=== PATIENT | male | born 1965 | race Caucasian/White ===

== ENCOUNTER 2017-06-04 14:35 | Emergency (ER) | payer OTHER, MEDICARE ==
[~2017-06-04] VITALS: Ht 195.6 cm; Wt 98.9 kg
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
[~2017-06-04 14:35] MED LIST: AMBIEN; AMBIEN CR PO; AMBIEN10 MG PO; ASPIRIN PO; AZOR 10-40 MG1 UDTAB PO; BACLOFEN10 MG PO; CIPRO PO; DARVOCET-N 1001 TAB PO; DIAZEPAM PO; FLAGYL PO; FLEXERIL; FLEXERIL PO; JANUMET XR 50-1 EAC1 PO; KLONOPIN0.5 MG PO; NEURONTIN PO; OPANA ER40 MG PO; OXYCONTIN PO; PERCOCET 10/3251 TAB PO; PERCOCET10 PO; PHENERGAN25 MG PO; PROVENTIL0.83 MG/ML IH; RANITIDINE HCL150 M1 PO; ZANAFLEX PO
== END 2017-06-04 17:25 | disposition home or self-care (01) ==
LOC: CFTX 14:35 → CED 14:35 → CFTX 16:26
DX: S93.402A Sprain of unspecified ligament of left ankle, initial encounter (principal); S40.011A Contusion of right shoulder, initial encounter; S20.212A Contusion of left front wall of thorax, initial encounter; S30.0XXA Contusion of lower back and pelvis, initial encounter; J44.9 Chronic obstructive pulmonary disease, unspecified; E11.9 Type 2 diabetes mellitus without complications; I11.9 Hypertensive heart disease without heart failure; I51.9 Heart disease, unspecified; F17.210 Nicotine dependence, cigarettes, uncomplicated; Z98.890 Other specified postprocedural states; Z88.0 Allergy status to penicillin; Z88.5 Allergy status to narcotic agent; V20.9XXA Unspecified motorcycle rider injured in collision with pedestrian or animal in traffic accident, initial encounter
CPT/HCPCS: 71101; 72100; 73030; 73110; 73562; 73590; 73610; 94640; 99284